=== PATIENT | male | born 1975 | race Caucasian/White ===

== ENCOUNTER 2017-10-29 23:00 | Inpatient (IN) | payer SELFPAY ==
[~2017-10-29] VITALS: Ht 167.6 cm; Wt 68.0 kg
[~2017-10-29 23:00] MED LIST: PENVK500 PO
[2017-10-29 23:02] VITALS: BP 119/67; PULSE 124; RESP 24; TEMP 98.3; O2SAT 94
[2017-10-29] MEDS ORDERED: RESP: ALBUTEROL 2.5 MG/IPRATROPIUM 0.5 MG NEB (SCH) INH ONE (23:45)
[2017-10-29] MEDS ORDERED: NYST1000 SWISH-SWAL (23:57)
--- NOTE | 2017-10-29 23:57 | RADRPT ---
EXAM DATE/TIME: 10/29/2017 23:45 [place] COMPARISON: No previous studies available for comparison. INDICATIONS : Cold symptoms. MEDICAL HISTORY : None. SURGICAL HISTORY : None. ENCOUNTER: Initial ACUITY: 1 day PAIN SCORE: 0/10 LOCATION: Bilateral chest FINDINGS: The cardiac silhouette is normal in transverse diameter. There is interstitial opacity bilaterally ei ther acute or chronic in nature. If acute this could reflect atypical bacterial or viral pneumonia. N o pleural effusions are identified. CONCLUSION: 1. Interstitial disease bilaterally of uncertain chronicity. Please see above. Prateek Hoyt MD on October 29, 2017 at 23:54 Board Certified Radiologist. This report was verified electronically.
--- NOTE | 2017-10-29 23:58 | PD ---
HPI Chief Complaint: Cold / Flu Symptoms Time Seen by Provider: 23:15 Travel History International Travel<30 days: No Contact w/Intl Traveler<30days: No Traveled to known affect area: No History of Present Illness HPI The patient is a 42 year old male who presents to the [facility] emergency department with a history of congestion and cough that began one week ago. The patient reports the cough has been productive of green sputum. He reports also having a dry mouth and sore throat. He reports that today he began to have shortness of breath with exertion and generalized weakness. He reports that several family members are sick with pneumonia and currently on antibiotic including his sister who is at the bedside. He reports having subjective fevers at the onset of the illness, no recent fevers. He denies having any nausea, vomiting, or diarrhea. He denies having a primary care physician. He denies having any chest pain or pressure. On review of systems, the patient denies having any neck pain, abdominal pain,urinary symptoms, or neurologic symptoms. 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 Immunizations Current: Yes Tetanus Vaccination: Unknown Influenza Vaccination: No Past Surgical History Narrative Surgical The patient's past surgical history is significant for left leg ORIF. Social History Alcohol Use: Yes (2 beers per week) Tobacco Use: Yes (3/4 of a pack of cigarettes per day) Substance Use: No Allergies-Medications (Allergen,Severity, Reaction): Coded Allergies: No Known Allergies (Unverified Allergy, Unknown, 10/30/17) Reported Meds & Prescriptions Reported Meds & Active Scripts Active No Active Prescriptions or Reported Medications Review of Systems Except as stated in HPI: all other systems reviewed are Neg General / Constitutional: Positive: Fever, Chills Eyes: No: Visual changes HENT: Positive: Sore Throat, Rhinorrhea, Congestion, No: Headaches Cardiovascular: Positive: Dyspnea on exertion, No: Chest Pain or Discomfort Respiratory: Positive: Cough, Shortness of Breath Gastrointestinal: No: Nausea, Vomiting, Diarrhea, Abdominal Pain Genitourinary: No: Dysuria Musculoskeletal: No: Pain Skin: No Rash Neurologic: Positive: Weakness (generalized weakness), No: Focal Abnormalities , Change in Mentation, Slurred Speech, Sensory Disturbance Psychiatric: No: Depression Endocrine: No: Polydipsia Hematologic/Lymphatic: No: Easy Bruising Physical Exam Narrative General: The patient is well-developed well-nourished male in no acute distress. Head and Neck exam: Head is normocephalic atraumatic. Eyes: EOMI, pupils are equal round and reactive to light. Nose: Midline septum with pink mucous membranes Mouth: Dentition unremarkable. Moist mucus membranes. Posterior oropharynx is not erythematous. No tonsillar hypertrophy. Uvula midline. Airway patent. White patches are noted in the patient's buccal mucosa consistent with thrush. Neck: No palpable lymphadenopathy. No nuchal rigidity. No thyromegaly. Cardiovascular: Sinus tachycardia in the low 100s without murmurs, gallops, or rubs. No pulse deficit to the extremities on simultaneous auscultation and palpation of his radial artery. Lungs: Soft expiratory wheezes are audible in bilateral lung mccall. No rhonchi or crackles. No accessory muscle use. No paroxysmal abdominal breathing. No tripoding. Abdomen: Soft, without tenderness to palpation in all 4 quadrants of the abdomen. No guarding, rebound, or rigidity. Normal bowel sounds are audible. No tenderness on palpation of McBurney's point. Extremities: No clubbing, cyanosis, or edema. 2+ pulses in all 4 extremities. No calf tenderness on palpation. Back: No spinous process tenderness to palpation. No costovertebral angle tenderness to palpation. Neurologic Exam: Grossly nonfocal. Skin Exam: No rash noted. Intact skin that is warm and dry. Data Data Last Documented VS Vital Signs Date Time Temp Pulse Resp B/P (MAP) Pulse Ox O2 Delivery O2 Flow Rate FiO2 10/30/17 00:44 18 10/30/17 00:44 95 Room Air 10/30/17 00:44 103 10/29/17 23:02 98.3 Orders Orders Complete Blood Count With Diff (10/29/17 23:38) Basic Metabolic Panel (Bmp) (10/29/17 23:38) Iv Access Insert/Monitor (10/29/17 23:38) Ecg Monitoring (10/29/17 23:38) Oximetry (10/29/17 23:38) Oxygen Administration (10/29/17 23:38) Chest, Single Ap (10/29/17 23:38) Albuterol-Ipratropium Neb (Duoneb Neb) (10/29/17 23:45) Azithromycin Inj (Zithromax Inj) (10/30/17 00:15) Sodium Chlorid 0.9% 500 Ml Inj (Ns 500 M (10/30/17 00:15) Blood Culture (10/30/17 01:14) Lactic Acid Sepsis Protocol (10/30/17 01:14) Ceftriaxone Inj (Rocephin Inj) (10/30/17 01:30) Admit Order (Ed Use Only) (10/30/17 01:46) Labs Laboratory Tests Test 10/30/17 00:07 10/30/17 01:05 White Blood Count 17.3 TH/MM3 Red Blood Count 4.13 MIL/MM3 Hemoglobin 12.1 GM/DL Hematocrit 35.2 % Mean Corpuscular Volume 85.2 FL Mean Corpuscular Hemoglobin 29.3 PG Mean Corpuscular Hemoglobin Concent 34.4 % Red Cell Distribution Width 14.7 % Platelet Count 747 TH/MM3 Mean Platelet Volume 7.1 FL Neutrophils (%) (Auto) 77.6 % Lymphocytes (%) (Auto) 13.7 % Monocytes (%) (Auto) 6.2 % Eosinophils (%) (Auto) 0.6 % Basophils (%) (Auto) 1.9 % Neutrophils # (Auto) 13.5 TH/MM3 Lymphocytes # (Auto) 2.4 TH/MM3 Monocytes # (Auto) 1.1 TH/MM3 Eosinophils # (Auto) 0.1 TH/MM3 Basophils # (Auto) 0.3 TH/MM3 CBC Comment AUTO DIFF Differential Total Cells Counted 100 Neutrophils % (Manual) 77 % Band Neutrophils % 4 % Lymphocytes % 14 % Monocytes % 2 % Basophils % 1 % Neutrophils # (Manual) 14.2 TH/MM3 Myelocytes 1 % Differential Comment FINAL DIFF MANUAL Blastocytes 1 % Platelet Estimate HIGH Platelet Morphology Comment NORMAL Basophilic Stippling FAINT Red Cell Morphology Comment NORMAL Blood Urea Nitrogen 13 MG/DL Creatinine 0.50 MG/DL Random Glucose 94 MG/DL Calcium Level 8.5 MG/DL Sodium Level 143 MEQ/L Potassium Level 3.7 MEQ/L Chloride Level 111 MEQ/L Carbon Dioxide Level 19.5 MEQ/L Anion Gap 13 MEQ/L Estimat Glomerular Filtration Rate 181 ML/MIN Lactic Acid Level 2.3 mmol/L MDM Medical Decision Making Medical Screen Exam Complete: Yes Emergency Medical Condition: Yes Medical Record Reviewed: Yes Differential Diagnosis Pneumonia, versus COPD exacerbation, versus influenza, versus lung cancer Narrative Course During the course of the patients emergency department visit, the patients history, examination, and differential diagnosis were reviewed with the patient. The patient was placed on a shelter monitor with oximetry and frequent blood pressure monitoring. The patient had IV access obtained and blood work sent for analysis. The patient was initially provided a DuoNeb 1. The patients laboratory studies were reviewed and remarkable for a white count of 17.3, hemoglobin 12.1, platelets 747 with 77 neutrophils, 4 bands. Blood cultures 2 were drawn, lactic acid was sent for analysis. A chest x-ray showed bilateral interstitial infiltrates consistent with an atypical arterial pneumonia versus viral pneumonia. The patient was given Zithromax 500 IV. Once the patient's white blood cell count came back elevated as well the patient was also covered with Rocephin 1 g IV. Basic metabolic profile is remarkable for CO2 19.5, creatinine 0.5, calcium 8.5 lactic acid is 2.3. The patient was given normal saline 1 L IV fluid bolus. The patient will be admitted to the hospital for pneumonia, sepsis criteria. The patients results were discussed with the patient, including the plan of care. I explained that further testing and/ or monitoring is indicated based on the patients history, examination, and/ or laboratory findings. Therefore, I recommended admission for additional evaluation. The patient expressed understanding and was agreeable with this plan. The patient was admitted to the hospital in stable condition and sent to a bed under the care of the [facility] service. Sepsis Criteria SIRS Criteria (2 or more): Heart rate over 90, RR > 20 or PaCO2 < 32, WBC > 19137, < 4000 or > 10% bands Sepsis Criteria (SIRS+source): Infect source susp/known Severe Sepsis (+one): Lactate >2 Criteria Outcome: Meets SIRS criteria, Meets sepsis criteria, Meets severe sepsis criteria Physician Communication Physician Communication The patient's case including history, pertinent physical examination findings, and laboratory studies were discussed with Dr. Owens. It was agreed that the patient would be admitted to the [facility] service. Diagnosis Primary Impression: PNA (pneumonia) Qualified Codes: J18.9 - Pneumonia, unspecified organism Additional Impression: Sepsis Qualified Codes: A41.9 - Sepsis, unspecified organism Admitting Information Admitting Physician Requests: Admit Patient Instructions: General Instructions, Oral Candidiasis (ED) Med/Other Pt SpecificInfo: Prescription(s) given Scripts No Active Prescriptions or Reported Meds Yesenia Dumont MD Oct 29, 2017 23:58
[2017-10-30] VITALS (10 sets, daily range): BP systolic 113–134; BP diastolic 65–88; PULSE 73–103; RESP 16–18; TEMP 97.6–99; O2SAT 94–99
[2017-10-30] MEDS ORDERED: SODIUM CHLORID 0.9% 500 ML INJ 500 ML IV ONE (00:15)
[2017-10-30] MEDS ORDERED: AZITHROMYCIN INJ 500 MG in SODIUM CHLOR 0.9% 250 ML INJ 250 ML IV ONE (00:15)
[2017-10-30 00:18] LABS: AUTOMATED NEUTROPHIL # 13.5 TH/MM3 (1.8-7.7); BASOPHIL # 0.3 TH/MM3 (0-0.2); BASOPHIL % 1.9 % (0.0-2.0); EOSINOPHIL # 0.1 TH/MM3 (0-0.4); EOSINOPHIL % 0.6 % (0.0-4.0); HEMATOCRIT 35.2 % (39.0-51.0); HEMOGLOBIN 12.1 GM/DL (13.0-17.0); LYMPH % 13.7 % (9.0-44.0); LYMPHOCYTE # 2.4 TH/MM3 (1.0-4.8); MEAN CELL VOLUME 85.2 FL (80.0-100.0); MEAN CORPUSCULAR HEMOGLOBIN 29.3 PG (27.0-34.0); MEAN CORPUSCULAR HGB CONC 34.4 % (32.0-36.0); MEAN PLATELET VOLUME 7.1 FL (7.0-11.0); MONO % 6.2 % (0.0-8.0); MONOCYTE # 1.1 TH/MM3 (0-0.9); NEUT % 77.6 % (16.0-70.0); PLATELET COUNT 747 TH/MM3 (150-450); RED BLOOD COUNT 4.13 MIL/MM3 (4.50-5.90); RED CELL DISTRIBUTION WIDTH 14.7 % (11.6-17.2); WHITE BLOOD COUNT 17.3 TH/MM3 (4.0-11.0)
[2017-10-30 00:43] LABS: BICARBONATE 19.5 MEQ/L (21.0-32.0); CALCIUM 8.5 MG/DL (8.5-10.1); CREATININE 0.5 MG/DL (0.60-1.30)
[2017-10-30 01:01] LABS: BANDS 4 % (0-6); BASOPHILS 1 % (0-2); BLASTS 1 % (0-0); LYMPHOCYTES 14 % (9-44); MONOCYTES 2 % (0-8); MYELOCYTES 1 % (0-0); NEUTROPHIL # MANUAL DIFF 14.2 TH/MM3 (1.8-7.7); POLYS (SEG NEUTROPHILS) 77 % (16-70)
[2017-10-30] MEDS ORDERED: cefTRIAXone INJ 1,000 MG in SODIUM CHLORIDE 0.9% INJ 100 ML IV ONE (01:30)
[2017-10-30] MEDS ORDERED: MAGNESIUM HYDROXIDE SUSP 30 ML CUP PO PRN (01:45)
[2017-10-30] MEDS ORDERED: RESP: ALBUTEROL 2.5 MG/IPRATROPIUM 0.5 MG NEB (PRN) NEB (01:45)
[2017-10-30] MEDS ORDERED: BISACODYL 10 MG SUPP RECTAL PRN (01:45)
[2017-10-30] MEDS ORDERED: ONDANSETRON HCL 4 MG/2 ML VIAL IVP PRN (01:45)
[2017-10-30] MEDS ORDERED: ACETAMINOPHEN 325 MG TAB PO PRN (01:45)
[2017-10-30] MEDS ORDERED: SODIUM CHLORIDE 0.9% FLUSH 10 ML FLUSH IV FLUSH PRN (01:45)
[2017-10-30] MEDS ORDERED: LACTULOSE SYRUP 20 GM/30 ML CUP PO PRN (01:45)
[2017-10-30] MEDS ORDERED: SENNOSIDES 8.6 MG TAB PO PRN (01:45)
[2017-10-30 01:47] LABS: LACTIC ACID SEPSIS PROTOCOL 2.3 mmol/L (0.4-2.0)
[2017-10-30] MEDS: SODIUM CHLOR 0.9% 1000 ML INJ 1,000 ML IV SCH ×2 (02:39→14:20)
--- NOTE | 2017-10-30 03:13 | HHI.HP ---
HPI Service [facility] Primary Care Physician No Primary Care Physician Admission Diagnosis bilateral pneumonia Diagnoses: (1) Sepsis Diagnosis: Principal (2) PNA (pneumonia) Diagnosis: Principal (3) Tobacco abuse Diagnosis: Principal Travel History International Travel<30 Days: No Contact w/Intl Traveler <30 Da: No Traveled to Known Affected Are: No History of Present Illness This is a 42-year-old male with a PMH of Tobacco Abuse and h/o Substance Abuse who presented to the ER w/ complaints of nasal congestion and cough x1 wk. Notes cough is productive w/ yellow/green colored sputum. Today w/ sore throat and SOB, worse w/ exertion, moderate severity. Reports multiple family members w/ PNA on antibiotics. Also notes subjective fever/chills. On arrival, BP 119/ 67, HR 124, O2 sat 94% on RA, Afebrile. WBC 17.3. Lactic Acid 2.3. CXR with interstitial disease bilaterally, likely atypical/viral pneumonia. S/p Blood Cultures, Rocephin/Zithro in ER. Review of Systems Except as stated in HPI: all other systems reviewed are Neg ROS: 14 point review of systems otherwise negative. Past Family Social History Past Medical History PMH: Tobacco Abuse and h/o Substance Abuse Past Surgical History PAST SURGICAL HISTORY: Left Leg ORIF Allergies: Coded Allergies: No Known Allergies (Unverified Allergy, Unknown, 10/30/17) Family History PAST FAMILY HISTORY: Reviewed. No h/o DM or CAD Social History PAST SOCIAL HISTORY: Occasional alcohol. Smokes 3/4-1ppd. H/o Heroin Abuse, on Suboxone Physical Exam Vital Signs Vital Signs Date Time Temp Pulse Resp B/P (MAP) Pulse Ox O2 Delivery O2 Flow Rate FiO2 10/30/17 02:25 99 10/30/17 00:44 95 Room Air 10/30/17 00:44 103 16 113/65 (81) 95 Room Air 10/29/17 23:02 98.3 124 24 119/67 (84) 94 Room Air Physical Exam PE: GENERAL: Middle-aged male in no acute distress. HEENT: PERRLA, EOMI. No scleral icterus or conjunctival pallor. No lid lag or facial droop. CARDIOVASCULAR: Regular rate and rhythm. No obvious murmurs to auscultation. No chest tenderness to palpation. RESPIRATORY: No obvious rhonchi. Occasional wheezing. Clear to auscultation. Breath sounds equal bilaterally. GASTROINTESTINAL: Abdomen soft, non-tender, nondistended. BS normal. MUSCULOSKELETAL: Extremities without clubbing, cyanosis, or edema. No obvious deformities. NEUROLOGICAL: Awake, alert and oriented x4. No focal neurologic deficits. Moving both upper and lower extremities spontaneously. Laboratory Laboratory Tests Test 10/30/17 00:07 10/30/17 01:05 White Blood Count 17.3 Red Blood Count 4.13 Hemoglobin 12.1 Hematocrit 35.2 Mean Corpuscular Volume 85.2 Mean Corpuscular Hemoglobin 29.3 Mean Corpuscular Hemoglobin Concent 34.4 Red Cell Distribution Width 14.7 Platelet Count 747 Mean Platelet Volume 7.1 Neutrophils (%) (Auto) 77.6 Lymphocytes (%) (Auto) 13.7 Monocytes (%) (Auto) 6.2 Eosinophils (%) (Auto) 0.6 Basophils (%) (Auto) 1.9 Neutrophils # (Auto) 13.5 Lymphocytes # (Auto) 2.4 Monocytes # (Auto) 1.1 Eosinophils # (Auto) 0.1 Basophils # (Auto) 0.3 CBC Comment AUTO DIFF Differential Total Cells Counted 100 Neutrophils % (Manual) 77 Band Neutrophils % 4 Lymphocytes % 14 Monocytes % 2 Basophils % 1 Neutrophils # (Manual) 14.2 Myelocytes 1 Differential Comment FINAL DIFF MANUAL Blastocytes 1 Platelet Estimate HIGH Platelet Morphology Comment NORMAL Basophilic Stippling FAINT Red Cell Morphology Comment NORMAL Blood Urea Nitrogen 13 Creatinine 0.50 Random Glucose 94 Calcium Level 8.5 Sodium Level 143 Potassium Level 3.7 Chloride Level 111 Carbon Dioxide Level 19.5 Anion Gap 13 Estimat Glomerular Filtration Rate 181 Lactic Acid Level 2.3 Date/Time Source Procedure Growth Status 10/30/17 01:15 Blood Peripheral Aerobic Blood Culture Pending Received 10/30/17 01:15 Blood Peripheral Anaerobic Blood Culture Pending Received Result Diagram: 10/30/17610/30/176 Caprini VTE Risk Assessment Caprini VTE Risk Assessment: No/Low Risk (score <= 1) Caprini Risk Assessment Model Point Value = 1 Point Value = 2 Point Value = 3 Point Value = 5 Age 41-60 Minor surgery BMI > 25 kg/m2 Swollen legs Varicose veins or History of unexplained or recurrent spontaneous Oral contraceptives or hormone replacement Sepsis (< 1 month) Serious lung disease, including pneumonia (< 1 month) Abnormal pulmonary function Acute myocardial infarction Congestive heart failure (< 1 month) History of inflammatory bowel disease Medical patient at bed rest Age 61-74 Arthroscopic surgery Major open surgery (> 45 min) Laparoscopic surgery (> 45 min) Malignancy Confined to bed (> 72 hours) Immobilizing plaster cast Central venous access Age >= 75 History of VTE Family history of VTE Factor V Leiden Prothrombin [id number] Lupus anticoagulant Anticardiolipin antibodies Elevated serum homocysteine Heparin-induced thrombocytopenia Other congenital or acquired thrombophilia Stroke (< 1 month) Elective arthroplasty Hip, pelvis, or leg fracture Acute spinal cord injury (< 1 month) Prophylaxis Regimen Total Risk Factor Score Risk Level Prophylaxis Regimen 0-1 Low Early ambulation 2 Moderate Order ONE of the following: *Sequential Compression Device (SCD) *Heparin 5000 units SQ BID 3-4 Higher Order ONE of the following medications: *Heparin 5000 units SQ TID *Enoxaparin/Lovenox 40 mg SQ daily (WT < 150 kg, CrCl > 30 mL/min) *Enoxaparin/Lovenox 30 mg SQ daily (WT < 150 kg, CrCl > 10-29 mL/min) *Enoxaparin/Lovenox 30 mg SQ BID (WT < 150 kg, CrCl > 30 mL/min) AND/OR *Sequential Compression Device (SCD) 5 or more Highest Order ONE of the following medications: *Heparin 5000 units SQ TID (Preferred with Epidurals) *Enoxaparin/Lovenox 40 mg SQ daily (WT < 150 kg, CrCl > 30 mL/min) *Enoxaparin/Lovenox 30 mg SQ daily (WT < 150 kg, CrCl > 10-29 mL/min) *Enoxaparin/Lovenox 30 mg SQ BID (WT < 150 kg, CrCl > 30 mL/min) AND *Sequential Compression Device (SCD) Assessment and Plan Problem List: (1) Sepsis ICD Code: A41.9 - Sepsis, unspecified organism (2) PNA (pneumonia) ICD Code: J18.9 - Pneumonia, unspecified organism (3) Tobacco abuse ICD Code: Z72.0 - Tobacco use Assessment and Plan A/P: 1. Sepsis: HR 120, WBC 17.3, Source-PNA. S/p Blood Cultures, Rocephin/Zithro in ER. Follow up cultures, continue IV Abx. 2. PNA: CXR w/ bilateral interstitial disease, atypical/viral pneumonia, images reviewed by me. Multiple family members w/ PNA on antibiotics. Continue w/ IV Rocephin/Zithro, DuoNeb prn, Mucinex. Check Sputum Cultures. 3. Tobacco Abuse: Pt counselled. NicoDerm prn 4. DVT Prophylaxis: SCD/Teds. 5. Social work for d/c planning as needed. 6. Records/labs/imaging reviewed. Case discussed w/ ER physician at length. Physician Certification 2 Midnight Certification Type: Admission for Inpatient Services Order for Inpatient Services The services are ordered in accordance with Medicare regulations or non- Medicare payer requirements, as applicable. In the case of services not specified as inpatient-only, they are appropriately provided as inpatient services in accordance with the 2-midnight benchmark. Estimated LOS (days): 2 days is the estimated time the patient will need to remain in the hospital, assuming treatment plan goals are met and no additional complications. Post-Hospital Plan: Not yet determined Marianna Owens MD Oct 30, 2017 03:13
[2017-10-30] MEDS: guaiFENesin E.R. 600 MG TAB PO SCH ×2 (09:49→21:58)
[2017-10-30] MEDS: DOCUSATE SODIUM 50 MG/SENNA 8.6 MG TAB PO SCH ×2 (09:49→22:00)
[2017-10-30] MEDS: SODIUM CHLORIDE 0.9% FLUSH 10 ML FLUSH IV FLUSH SCH ×2 (09:49→22:00)
--- NOTE | 2017-10-30 09:56 | HHI.PR ---
Subjective Remarks Follow up on patient with sepsis, PNA. Patient seen and examined. States he is doing better. Endorses persistent cough and sore throat. Scant sputum production. No fever or chills. No shortness of breath. No chest pain. No N/ V or abdominal pain. Good appetite. No hematuria or dysuria. No diarrhea or constipation. Admits to IV Heroin use, last used 2 days ago. Denies any EtOH use. Uses Suboxone that he obtains off the street. Objective Vitals Vital Signs Date Time Temp Pulse Resp B/P (MAP) Pulse Ox O2 Delivery O2 Flow Rate FiO2 10/30/17 05:50 97.9 84 18 116/68 (84) 97 10/30/17 03:13 10/30/17 02:25 99 10/30/17 00:44 18 10/30/17 00:44 95 Room Air 10/30/17 00:44 103 16 113/65 (81) 95 Room Air 10/29/17 23:02 98.3 124 24 119/67 (84) 94 Room Air I/O 10/29/17 10/29/17 10/29/17 10/30/17 10/30/17 10/30/17 07:00 15:00 23:00 07:00 15:00 23:00 Intake Total 850 ml Balance 850 ml Intake IV Total 850 ml Result Diagram: 10/30/17 0007 10/30/17 0007 Imaging Last Impressions Chest X-Ray 10/29/17 2338 Signed Impressions: Service Date/Time: Sunday, October 29, 2017 23:45 - CONCLUSION: 1. Interstitial disease bilaterally of uncertain chronicity. Please see above. Prateek Hoyt MD Objective Remarks GENERAL: Thin, slightly cachectic appearing male patient in NAD. Awake and alert. Pleasant and cooperative. Appears much older than stated age. SKIN: Warm and dry. No rash. HEAD: Normocephalic. Atraumatic. EYES: EOMI. No scleral icterus. No injection or drainage. ENT: No nasal bleeding or discharge. Mucous membranes pink and moist. NECK: Supple. Trachea midline. CARDIOVASCULAR: Regular rate and rhythm. S1, S2 noted. No murmur appreciated. RESPIRATORY: Nonlabored. Fair air entry. Clear to auscultation. Breath sounds equal bilaterally. GASTROINTESTINAL: Abdomen soft, non-tender, nondistended. Normoactive bowel sounds x4. MUSCULOSKELETAL: No obvious deformities. Extremities without clubbing, cyanosis , or edema. NEUROLOGICAL: Awake and alert. Motor and sensory function grossly intact. Nonfocal. Normal speech. PSYCHIATRIC: Appropriate mood and affect; insight and judgment normal. Medications and IVs Current Medications Medications (Trade) Dose Ordered Sig/[place]ana Route Start Time Stop Time Status Last Admin Ceftriaxone Sodium 1000 mg/ Sodium Chloride 100 ml @ 200 mls/hr Q24H IV 10/30/17 22:00 Azithromycin 500 mg/Sodium Chloride 250 ml @ 250 mls/hr Q24H IV 10/30/17 23:00 (Duoneb Neb) 1 ampule Q4HR NEB PRN NEB 10/30/17 01:45 Sodium Chloride 1,000 ml @ 100 mls/hr Q10H IV 10/30/17 01:44 10/30/17 02:39 (NS Flush) 2 ml UNSCH PRN IV FLUSH 10/30/17 01:45 (NS Flush) 2 ml BID IV FLUSH 10/30/17 09:00 (Zofran Inj) 4 mg Q6H PRN IVP 10/30/17 01:45 (Tylenol) 650 mg Q6H PRN PO 10/30/17 01:45 (Bhavana-Colace) 1 tab BID PO 10/30/17 09:00 (Milk Of Magnesia Liq) 30 ml Q12H PRN PO 10/30/17 01:45 (Senokot) 17.2 mg Q12H PRN PO 10/30/17 01:45 (Dulcolax Supp) 10 mg DAILY PRN RECTAL 10/30/17 01:45 (Lactulose Liq) 30 ml DAILY PRN PO 10/30/17 01:45 (Mucinex Er) 600 mg BID PO 10/30/17 09:00 (Pneumovax-23 Inj) 25 mcg ONCE ONCE IM 10/31/17 09:00 10/31/17 09:01 (Flu (Quadrivalent) Vaccine Inj) 0.5 ml ONCE ONCE IM 10/31/17 09:00 10/31/17 09:01 A/P Problem List: (1) Sepsis ICD Code: A41.9 - Sepsis, unspecified organism (2) PNA (pneumonia) ICD Code: J18.9 - Pneumonia, unspecified organism (3) Tobacco abuse ICD Code: Z72.0 - Tobacco use Assessment and Plan Sepsis: HR 120, WBC 17.3, Source-PNA, resolved Lactic acidosis: resolved repeat lactic acid 1.3 S/p Blood Cultures, pending Rocephin/Zithro in ER. Continue IV Abx. PNA: CXR w/ bilateral interstitial disease, atypical/viral pneumonia. Multiple family members w/ PNA on antibiotics. Continue w/ IV Rocephin/Zithro DuoNeb prn, Mucinex. Sputum Cultures ordered Monitor respiratory status. Currently satting 97% on RA. Tobacco Abuse Cessation counseling NicoDerm prn IV Heroin use Last used 2 days ago Uses Suboxone he buys off the street Cessation counseling DVT Prophylaxis: SCD/Teds Discharge Planning Pending clinical improvement, results of BCXs, possible d/c tomorrow Attending Statement patient was seen and examined today. afebrile. sob has improved. has occasional cough. continue antibiotics. rest of assessment and plan as noted above. Lory Sykes Oct 30, 2017 09:56 Bela Isbell MD Oct 30, 2017 12:39
[2017-10-30] MEDS ORDERED: MENTHOL LOZENGE BUCCAL ONE (10:00)
[2017-10-30] MEDS ORDERED: MENTHOL LOZENGE BUCCAL PRN (10:00)
[2017-10-30] MEDS ORDERED: cefTRIAXone INJ 1,000 MG in SODIUM CHLORIDE 0.9% INJ 100 ML IV SCH (22:00)
[2017-10-30] MEDS ORDERED: AZITHROMYCIN INJ 500 MG in SODIUM CHLOR 0.9% 250 ML INJ 250 ML IV SCH (23:00)
[2017-10-31 00:15] VITALS: PULSE 75
[2017-10-31 03:55] VITALS: PULSE 65
[2017-10-31 04:09] VITALS: BP 118/63; PULSE 79; RESP 18; TEMP 98.2; O2SAT 98
[2017-10-31 07:41] VITALS: BP 122/80; PULSE 73; RESP 21; TEMP 98.2; O2SAT 96
[2017-10-31] MEDS ORDERED: PNEUMOCOCCAL POLYVALENT INJ 25 MCG/0.5 ML SYR IM ONE (09:00)
[2017-10-31] MEDS ORDERED: INFLUENZA VIRUS VACCINE (QUADRIVALENT) 0.5 ML SYR IM ONE (09:00)
[2017-10-31] MEDS: SODIUM CHLORIDE 0.9% FLUSH 10 ML FLUSH IV FLUSH SCH (09:47)
[2017-10-31] MEDS: DOCUSATE SODIUM 50 MG/SENNA 8.6 MG TAB PO SCH (09:47)
[2017-10-31] MEDS: guaiFENesin E.R. 600 MG TAB PO SCH (09:47)
[2017-10-31 10:12] LABS: AUTOMATED NEUTROPHIL # 8.5 TH/MM3 (1.8-7.7); BASOPHIL # 0.1 TH/MM3 (0-0.2); BASOPHIL % 0.9 % (0.0-2.0); EOSINOPHIL # 0.2 TH/MM3 (0-0.4); EOSINOPHIL % 1.4 % (0.0-4.0); HEMOGLOBIN 12.1 GM/DL (13.0-17.0); MEAN CELL VOLUME 85.5 FL (80.0-100.0); MEAN CORPUSCULAR HEMOGLOBIN 28.8 PG (27.0-34.0); MEAN CORPUSCULAR HGB CONC 33.7 % (32.0-36.0); MEAN PLATELET VOLUME 7.3 FL (7.0-11.0); MONO % 5.4 % (0.0-8.0); MONOCYTE # 0.7 TH/MM3 (0-0.9); NEUT % 68.3 % (16.0-70.0); PLATELET COUNT 811 TH/MM3 (150-450); RED BLOOD COUNT 4.21 MIL/MM3 (4.50-5.90); WHITE BLOOD COUNT 12.4 TH/MM3 (4.0-11.0)
[2017-10-31 10:24] LABS: ALBUMIN 2.2 GM/DL (3.4-5.0); ALT (GPT) 44 U/L (12-78); AST (GOT) 43 U/L (15-37); BICARBONATE 25.5 MEQ/L (21.0-32.0); BLOOD UREA NITROGEN 7 MG/DL (7-18); CALCIUM 8.4 MG/DL (8.5-10.1); CHLORIDE 109 MEQ/L (98-107); CREATININE 0.56 MG/DL (0.60-1.30); GLOMERULAR FILTRATION RATE 159 ML/MIN (>89); GLUCOSE,RANDOM 91 MG/DL (74-106); SODIUM (NA) 142 MEQ/L (136-145)
[2017-10-31 10:27] LABS: ALKALINE PHOSPHATASE 79 U/L (45-117); TOTAL BILIRUBIN ADULT 0.2 MG/DL (0.2-1.0); TOTAL PROTEIN 7.4 GM/DL (6.4-8.2)
[2017-10-31 11:56] VITALS: BP 118/79; PULSE 91; RESP 20; TEMP 98; O2SAT 96
--- NOTE | 2017-10-31 11:56 | HHI.PR ---
Subjective Remarks in no acute distress. sob and overall condition has improved. no fever. wants to go home. Objective Vitals Vital Signs Date Time Temp Pulse Resp B/P (MAP) Pulse Ox O2 Delivery O2 Flow Rate FiO2 10/31/17 07:41 98.2 73 21 122/80 (94) 96 10/31/17 04:09 98.2 79 18 118/63 (81) 98 10/31/17 03:55 65 10/31/17 00:15 75 10/30/17 23:58 98.2 73 18 124/76 (92) 96 10/30/17 20:29 98.1 78 18 131/88 (102) 96 10/30/17 20:20 77 10/30/17 16:00 99.0 75 18 134/88 (103) 97 10/30/17 12:00 98.0 79 18 132/86 (101) 99 I/O 10/30/17 10/30/17 10/30/17 10/31/17 10/31/17 10/31/17 06:59 14:59 22:59 06:59 14:59 22:59 Intake Total 850 ml 480 ml 700 ml Balance 850 ml 480 ml 700 ml Intake Oral 480 ml IV Total 850 ml 700 ml # Voids 2 # Bowel Movements 1 Result Diagram: 10/31/17 0909 10/31/17 0909 Imaging Last Impressions Chest X-Ray 10/29/17 2338 Signed Impressions: Service Date/Time: Sunday, October 29, 2017 23:45 - CONCLUSION: 1. Interstitial disease bilaterally of uncertain chronicity. Please see above. Prateek Hoyt MD Objective Remarks GENERAL: This is a well-nourished, well-developed patient, in no apparent distress. CARDIOVASCULAR: Regular rate and regular rhythm without murmurs, gallops, or rubs. RESPIRATORY: Clear to auscultation. Breath sounds equal bilaterally. No wheezes , rales, or rhonchi. GASTROINTESTINAL: Abdomen soft, non-tender, nondistended. Normal, active bowel sounds MUSCULOSKELETAL: Extremities without clubbing, cyanosis, or edema. NEURO: Alert & Oriented x4 to person, place, time, situation. Moves all ext x4 Medications and IVs Inpatient Medications Acetaminophen (Tylenol) 650 mg Q6H PRN PO FEVER/PAIN SCALE 1 TO 2; Start at 01:45 Albuterol/ Ipratropium (Duoneb Neb) 1 ampule Q4HR NEB PRN NEB SOB/WHEEZING; Start 10/30/17 at 01:45 Azithromycin 500 mg/Sodium Chloride 250 ml @ 250 mls/hr Q24H IV Last administered on 10/30/17at 23:50; Start 10/30/17 at 23:00 Bisacodyl (Dulcolax Supp) 10 mg DAILY PRN RECTAL SEVERE CONSITIPATION/ IF NPO; Start 10/30/17 at 01:45 Ceftriaxone Sodium 1000 mg/ Sodium Chloride 100 ml @ 200 mls/hr Q24H IV Last administered on 10/30/17at 21:59; Start 10/30/17 at 22:00 Guaifenesin (Mucinex Er) 600 mg BID PO Last administered on 10/31/17at 09:47; Start 10/30/17 at 09:00 Influenza Virus Vaccine (Flu (Quadrivalent) Vaccine Inj) 0.5 ml ONCE ONCE IM Last administered on 10/31/17at 09:48; Start 10/31/17 at 09:00; Stop 10/31/17 at 09: 01; Status DC Lactulose (Lactulose Liq) 30 ml DAILY PRN PO SEVERE CONSITIPATION/ IF PO; Start 10/30/17 at 01:45 Magnesium Hydroxide (Milk Of Magnesia Liq) 30 ml Q12H PRN PO Mild constipation ; Start 10/30/17 at 01:45 Menthol ([place] Moi) 1 lozenge ONCE ONCE BUCCAL Last administered on 10/30/17at 11:15; Start 10/30/17 at 10:00; Stop 10/30/17 at 10:01; Status DC Ondansetron HCl (Zofran Inj) 4 mg Q6H PRN IVP NAUSEA OR VOMITING; Start at 01:45 Pneumococcal Polyvalent Vaccine (Pneumovax-23 Inj) 25 mcg ONCE ONCE IM Last administered on 10/31/17at 09:49; Start 10/31/17 at 09:00; Stop 10/31/17 at 09:01; Status DC Senna/Docusate Sodium (Bhavana-Colace) 1 tab BID PO Last administered on 10/31/17at 09:47; Start 10/30/17 at 09:00 Sennosides (Senokot) 17.2 mg Q12H PRN PO Moderate constipation; Start 10/30/17 at 01:45 Sodium Chloride (NS Flush) 2 ml BID IV FLUSH Last administered on 10/31/17at 09: 47; Start 10/30/17 at 09:00 A/P Problem List: (1) Sepsis ICD Code: A41.9 - Sepsis, unspecified organism (2) PNA (pneumonia) ICD Code: J18.9 - Pneumonia, unspecified organism (3) Tobacco abuse ICD Code: Z72.0 - Tobacco use Assessment and Plan Sepsis: HR 120, WBC 17.3, Source-PNA, resolved Lactic acidosis: resolved repeat lactic acid 1.3 Blood Cultures negative so far. Rocephin/Zithro in ER. will switch to po abx upon discharge. PNA: CXR w/ bilateral interstitial disease, atypical/viral pneumonia. Multiple family members w/ PNA on antibiotics. Continue w/ IV Rocephin/Zithro; switch to po abx upon discharge. DuoNeb prn, Mucinex. Tobacco Abuse Cessation counseling NicoDerm prn IV Heroin use Last used 2 days ago Uses Suboxone he buys off the street Cessation counseling DVT Prophylaxis: SCD[facility]eds [facility]. Bela Isbell MD Oct 31, 2017 11:55
[2017-10-31] MEDS ORDERED: AZIT500T2 PO (12:16)
[2017-10-31] MEDS ORDERED: CEFU1TAB18 PO (12:16)
--- NOTE | 2017-10-31 12:16 | HHI.DCPOC ---
Discharge Care Plan Diagnosis: (1) PNA (pneumonia) Goals to Promote Your Health * To prevent worsening of your condition and complications * To maintain your health at the optimal level Directions to Meet Your Goals Take your medications as prescribed Follow your dietary instruction Follow activity as directed Keep your appointments as scheduled Take your immunizations and boosters as scheduled If your symptoms worsen call your PCP, if no PCP go to Urgent Care Center or Emergency Room Smoking is Dangerous to Your Health. Avoid second hand smoke Call the 24-hour hour crisis hotline for domestic abuse at Latosha Valdez PA-C Oct 31, 2017 12:16 pm
[2017-10-31] MEDS ORDERED: guaiFENesin ER PO (12:17)
== END 2017-10-31 16:18 | disposition home or self-care (01) | DRG 871 ==
LOC: NEPE 23:00 → NEDA 10-30 01:47 → NEPHCDU 10-30 03:09
PROVIDERS: ADMIT Internal Medicine; ATTEND Internal Medicine
DX: A41.9 Sepsis, unspecified organism (principal); J18.9 Pneumonia, unspecified organism; E87.2 Acidosis; B37.0 Candidal stomatitis; F17.210 Nicotine dependence, cigarettes, uncomplicated; F11.10 Opioid abuse, uncomplicated; Z23 Encounter for immunization
CPT/HCPCS: 71045; 80048; 80053; 83605; 85007; 85025; 85027; 87040; 90686; 90732; 94664; 96365; 96375; J0456; J0696; J7030; J7040; J7050; Q2038